=== PATIENT | male | born 1960 | race Caucasian/White ===

== ENCOUNTER 2022-07-29 21:51 | Emergency (ER) | payer MEDICAID, SELFPAY ==
[2022-07-29 21:55] VITALS: BP 139/86; PULSE 72; RESP 16; TEMP 36.8; O2SAT 99
[2022-07-29 22:03] VITALS: BP 127/81; PULSE 62
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
[2022-07-29] MEDS: Acetaminophen 500 MG TAB 1000 MG PO (22:33)
[2022-07-29] MEDS: clonazePAM 1 MG TAB 2 MG PO (22:34)
[2022-07-29] MEDS: Ibuprofen 800 MG TAB PO (22:34)
[2022-07-29] MEDS: Albuterol HFA 8 GM 60 PUFF INH IH (22:37)
[2022-07-29 22:38] VITALS: RESP 16
[2022-07-29] MEDS: Inhaler, Assist Device 1 EACH MC (22:42)
[2022-07-30] VITALS (14 sets, daily range): BP systolic 113–155; BP diastolic 56–79; PULSE 41–72; RESP 13–22
--- NOTE | 2022-07-30 03:45 | NUR.NOTE ---
0005 fell out of bed while trying to take his pants off. cried out for help, found on the floor laying on his side. able to help him stand and get back into bed. c/o of R hip pain-states that he fell out of bed recently and hurt his R hip and it is the same pain bothering him now.Nursing Note:
[2022-07-30] MEDS: oxyCODONE 5 mg/Acetaminophen 325 mg TAB 1 TAB (04:05)
[2022-07-30] MEDS: Ondansetron O.D.T. 4 MG TABEF (05:00)
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
[2022-07-30] MEDS: LORazepam 20 MG/10 ML VIAL IVP (06:10)
[2022-07-30 06:20] LABS: Abs Immature Grans 0.01 10^3/uL (0.0-0.06); Absolute Basophil Count 0.03 10^3/uL (0.0-0.2); Absolute Eosinophil Count 0.13 10^3/uL (0.0-0.7); Absolute Lymphocyte Count 2.02 10^3/uL (1.2-3.4); Absolute Monocyte Count 0.57 10^3/uL (0.1-0.8); Absolute Neutrophil Count 2.15 10^3/uL (1.2-6.7); Basophils % 0.6; Eosinophils % 2.6; HCT 43.2 % (40.0-50.0); HGB 15.2 g/dL (13.5-17.5); Immature Grans % 0.2; Lymphocytes % 41.1; MCH 34.9 pg (27.0-33.0); MCHC 35.2 % (32.0-36.0); MCV 99 fL (80-95); MPV 9.9 fL (8.0-11.0); Monocytes % 11.6; Neutrophils % 43.9; Platelet Count 313 10^3/uL (130-400); RBC 4.35 10^6/uL (4.36-5.78); RDW 14.1 % (11.8-14.1); RDW-SD 51.6 fL; WBC 4.91 10^3/uL (4.4-10.8)
[2022-07-30] MEDS: Normal Saline 1,000 ML 1000 ML IV (06:25)
[2022-07-30 06:37] LABS: ALT 39 U/L (16-63); AST 35 U/L (15-37); Albumin 3.4 g/dL (3.4-5.0); Alkaline Phosphatase 56 U/L (46-116); Anion Gap 4.9 mmol/L (3-11); BUN 28 mg/dL (7-18); Bilirubin, Total 0.6 mg/dL (0.2-1.0); CO2 33.1 mmol/L (21.0-32.0); CREATININE 1.3 mg/dL (0.70-1.30); Chloride 99 mmol/L (98-107); Estimated GFR 62.89 (mL/min/1.73m2); Glucose 97 mg/dL (74-106); Potassium 3.5 mmol/L (3.5-5.1); Sodium 137 mmol/L (136-145); Total Protein 6.6 g/dL (6.4-8.2)
[2022-07-30 06:58] LABS: Troponin I < 50 ng/L (<or=60)
--- NOTE | 2022-07-30 07:27 | NUR.NOTE ---
Nursing Note: assumed care of patient with preceptor; patient has ripped out both IVs, patient appears restless and will not keep any monitor wires on, patient would not allow tech to do an EKG.
--- NOTE | 2022-07-30 08:30 | DI.CT_ITS ---
Exam(s) CT HEAD WO EXAM: CT HEAD WO CLINICAL HISTORY: vomiting. TECHNIQUE: Imaging Protocol: Axial computed tomography images with coronal and sagittal reformatted images were created and reviewed COMPARISON: No exams were available for comparison FINDINGS: Ventricles and Extra axial spaces: Normal in size and morphology for the patient's age. Hemorrhage: None. Cerebral parenchyma: Normal. Midline shift: None. Brainstem/Cerebellum: Normal. Calvarium: Normal. Visualized Paranasal sinuses/Mastoids: Minimal ethmoid mucosal thickening. Soft Tissues: Unremarkable. IMPRESSION: No acute intracranial process. RADIATION DOSE DELIVERED: 923.01mGy.cm Total DLP DATA REPOSITORY: All CT scans at this facility are submitted to the National Radiology Data Registry (NRDR) Dose Index Registry (DIR) with the [employer] ([employer]). RADIATION OPTIMIZATION: All CT scans at this facility use at least one of these dose optimization te chniques: automated exposure control; mA and/or kV adjustment per patient size (includes targeted exa ms where dose is matched to clinical indication); or iterative reconstruction.
[2022-07-30 09:20] LABS: ETHANOL BLOOD < 3.0 mg/dL (<10)
--- NOTE | 2022-07-30 10:58 | PDOC.ERCMACT ---
- If Service Date Differs Date of service: 07/30/22 Time of Service: 10:58 Care Management Activity Note Manas is dropped off by police in the ED due to nausea and vomiting. CM is asked to help Manas return home to [place]. CM completes an [facility] Authorization Form and arranges transport through [facility].
== END 2022-07-30 10:54 | disposition home or self-care (01) ==
PROVIDERS: Physician Assistant; Emergency Provider Emergency Medicine
DX: F41.9 Anxiety disorder, unspecified (principal); R11.10 Vomiting, unspecified; G89.29 Other chronic pain; S00.83XA Contusion of other part of head, initial encounter; R06.2 Wheezing; R05.9 Cough, unspecified; M54.50 Low back pain, unspecified; F17.210 Nicotine dependence, cigarettes, uncomplicated; X58.XXXA Exposure to other specified factors, initial encounter
CPT/HCPCS: 36415; 80053; 96361; 96365; 96372; 96375; 99284; 70450; 80320; 84484; 85025; J3490